=== PATIENT | female | born 1975 | race Hispanic/Latino ===

== ENCOUNTER → 2020-02-28 14:47 | Outpatient (CLI) | payer MEDICARE, SELFPAY ==
--- NOTE | 2020-02-28 14:52 | DI.RAD.S_ITS ---
PROCEDURE: XR KNEE RT 3V INDICATIONS: pain, swelling, unknown if injury, h/o seizures, r/o bony ab TECHNIQUE: 3 views of the knee were acquired. COMPARISON: None. FINDINGS: Bones: No fractures or dislocations. No suspicious bony lesions. No definite joint space narrowing. Moderate joint effusion IMPRESSION: Moderate joint effusion. If the patient's pain or other symptoms persist, consider further evaluation with MRI Dictated by: Melvin Farrell M.D. on 02/28/2020 at 15:54 Approved by: Melvin Farrell M.D. on 02/28/2020 at 15:55
== END ==
LOC: RAD 14:51
PROVIDERS: Referring Provider Physician Assistant; Visit Provider Physician Assistant
DX: M25.561 Pain in right knee (principal); R22.41 Localized swelling, mass and lump, right lower limb; R56.9 Unspecified convulsions
CPT/HCPCS: 73562

== ENCOUNTER 2021-11-11 12:36 | Emergency (ER) | payer MEDICARE, SELFPAY ==
[2021-11-11] VITALS (7 sets, daily range): BP systolic 113–151; BP diastolic 61–67; PULSE 74–88; RESP 15–22; TEMP 36.3; O2SAT 97–100
--- NOTE | 2021-11-11 12:41 | DI.CT.S_ITS ---
PROCEDURE: CT HEAD/BRAIN WO CON INDICATIONS: found unresponsive, with head injury TECHNIQUE: Noncontrast 4.5 mm thick angled axial sections acquired from the foramen magnum to the vertex, with coronal and sagittal reformats. For radiation dose reduction, the following was used: automated exposure control, adjustment of mA and/or kV according to patient size. COMPARISON: None. FINDINGS: Image quality: Excellent. CSF spaces: Basal cisterns are patent. No extra-axial fluid collections. Ventricles are normal in size and shape. Brain: No midline shift. No intracranial masses or hemorrhage. Mosher-white matter interface is normal. Skull and face: Calvarium and visualized facial bones are intact, without suspicious lesions. Sinuses: Visualized sinuses and mastoids are clear. IMPRESSION: No evidence acute intracranial process. Dictated by: Herminio Calvert M.D. on 11/11/2021 at 13:09 Approved by: Herminio Calvert M.D. on 11/11/2021 at 13:09
--- NOTE | 2021-11-11 12:42 | ED.AMS ---
HPI - Altered Mental Status General Chief Complaint: Seizure Stated Complaint: seizure Time Seen by Provider: 11/11/21 12:40 History of Present Illness HPI narrative: 46-year-old female nonsmoker with history of seizures presents by EMS for evaluation of unresponsive episode just prior to arrival. She does have a history of seizures but states she has been taking her medications. She was very confused on arrival of EMS. She was seen by a passerby laying in the road. She is more alert by the time she arrives here. She denies any injury, did not lose control of her bladder and did not bite her tongue. She has had no fever or chills. She denies any pain. Related Data Home Medications Medication Instructions Recorded Confirmed acetaminophen 325 mg tablet 650 mg PO #0 01/15/17 01/27/18 levetiracetam [Keppra] PO 02/28/20 02/28/20 Previous Rx's Medication Instructions Recorded carbamazepine 200 mg tablet 300 mg PO BID #180 cap 03/31/17 levetiracetam 1,000 mg tablet 3,000 mg PO BID #180 tab 03/31/17 (Keppra) amoxicillin 875 mg-potassium 1 tab PO BID #20 tab 01/27/18 clavulanate 125 mg tablet (Augmentin) carbamazepine 100 mg 100 mg PO BID #210 cap 09/07/19 capsule,extended release [id number] levetiracetam 1,000 mg tablet 1,000 mg PO BID #150 tab 09/07/19 Allergies Allergy/AdvReac Type Severity Reaction Status Date / Time No Known Drug Allergies Allergy Verified 02/28/20 14:28 Review of Systems Review of Systems Narrative: GENERAL: See HPI HEENT: Denies sinus pain, ear pain, sore throat, difficulty swallowing, dizziness. RESPIRATORY: Denies dyspnea, cough, wheezing, hemoptysis, sputum. CARDIOVASCULAR: Denies chest pain, palpitations, orthopnea, edema, GASTROINTESTINAL: Denies nausea, vomiting, abdominal pain, diarrhea, constipation, melena. : Denies dysuria, frequency, incontinence, hematuria, urinary retention. MUSCULOSKELETAL: denies weakness, joint pain, or bony pain SKIN: Denies rash, skin lesions, or other NEUROLOGIC: See HPI PSYCHIATRIC: No concerning psychosocial issues. 12 point review of systems is negative except for those stated above Patient History Medical History (Updated 11/11/21 @ 14:44 by Octavio Vu DO) Knee pain Social History Smoking Status: Never smoker Smoking Status: Never smoker Exam Initial Vital Signs Initial Vital Signs: Vital Signs Temperature 97.4 F L 11/11/21 12:35 Pulse Rate 88 11/11/21 12:35 Respiratory Rate 17 11/11/21 12:35 Blood Pressure 137/67 11/11/21 12:35 Pulse Oximetry 99 11/11/21 12:35 GENERAL: [46] year old patient appears stated age. Well-developed patient, in mild distress. GCS 15, confused HEAD: Atraumatic. Normocephalic. EYES: Pupils equal round and reactive. Extraocular motions intact. No scleral icterus. No injection or drainage. ENT: Nose without bleeding, purulent drainage. Throat without erythema, tonsillar hypertrophy or exudate. Airway patent. NECK: Trachea midline. Non tender CARDIOVASCULAR: Regular rate and rhythm without murmurs, gallops, or rubs. RESPIRATORY: Clear to auscultation. Breath sounds equal bilaterally. No wheezes, rales, or rhonchi. GASTROINTESTINAL: Abdomen soft, non-tender, nondistended. EXTREMITIES: No edema or joint tenderness. BACK: Nontender without deformity or crepitance. No flank tenderness. NEURO: Awake, confused. Cranial nerves 2-12 grossly intact SKIN: No rash or erythema of visible areas Course Orders Ordered: Discontinued Medications Sodium Chloride (Normal Saline 0.9%) 1,000 mls @ 1,000 mls/hr IV BOLUS ONE Stop: 11/11/21 13:39 Last Infusion: 11/11/21 14:21 Dose: 0 mls/hr Documented by: Admin: 11/11/21 13:35 Dose: 1,000 mls/hr Documented by: KRISTINA Vital Signs Vital signs: Vital Signs - 8 hr 11/11/21 12:35 11/11/21 12:44 11/11/21 12:52 Temperature 97.4 F L Pulse Rate 88 86 84 Respiratory Rate 17 17 22 Blood Pressure 137/67 118/66 Pulse Oximetry 99 99 97 11/11/21 13:00 11/11/21 13:30 11/11/21 14:00 Temperature Pulse Rate 82 74 75 Respiratory Rate 17 16 15 Blood Pressure 116/67 113/61 125/61 Pulse Oximetry 99 99 100 MDM - Altered Mental Status Lab Data Result diagrams: 11/11/21 13:10 11/11/21 13:50 Labs: Lab Results 11/11/21 11/11/21 11/11/21 Range/Units 13:10 13:10 13:10 WBC 8.5 (4.5-11.0) X10^3/uL RBC 4.20 (4.0-5.2) X10^6/uL Hgb 13.7 (12.0-16.0) g/dL Hct 40.5 (36-46) % MCV 96.3 (80-100) fL MCH 32.5 (26-34) PG MCHC 33.8 (30-36) % RDW 12.2 (11.6-14.8) % Plt Count 223 (150-400) X10^3/uL Neut % (Auto) 57.0 (50-75) % Lymph % (Auto) 31.2 (25-40) % [place] % (Auto) 9.2 (3-14) % Eos % (Auto) 2.3 (2-4) % Baso % (Auto) 0.3 (0-2) % Neut # (Auto) 4900 (9899-1738) /uL Lymph # (Auto) 2700 (2224-5609) /uL [place] # (Auto) 800 (0-900) /uL Eos # (Auto) 200 (0-450) /uL Baso # (Auto) 0 (0-100) /uL Sodium (137-145) mmol/L Potassium (3.4-5.1) mmol/L Chloride (98-107) mmol/L Carbon Dioxide (22-32) mmol/L BUN (7-17) mg/dL Creatinine (0.52-1.04) mg/dL Estimated GFR (>60) mL/min BUN/Creatinine Ratio (6-22) Glucose (70-100) mg/dL Calcium (8.4-10.2) mg/dL Magnesium 1.8 (1.6-2.3) mg/dL Total Bilirubin (0.2-1.3) mg/dL AST (14-36) IU/L ALT (<35) IU/L Alkaline Phosphatase (38-126) U/L Total Protein (6.3-8.2) g/dL Albumin (3.5-5.0) g/dL Globulin (1.7-4.1) g/dL Albumin/Globulin Ratio (1.0-2.8) Prolactin 32.2 H (3.0-18.6) ng/mL Urine Color Urine Appearance Urine pH (4.5-8.0) Ur Specific [place] (1.000-1.035) Urine Protein (Negative) Urine Glucose (UA) (Negative) g/dL Urine Ketones (NEGATIVE) Urine Occult Blood (Negative) Urine Nitrate (Negative) Urine Bilirubin (NEGATIVE) Urine Urobilinogen (0.2) E.U./dL Ur Leukocyte Esterase (NEGATIVE) Urine RBC (0-5/HPF) Urine WBC (0-5/HPF) Ur Squamous Epith Cells (0-5/HPF) Urine Bacteria (None) Ur Culture Indicated? U Opiates 300ng/mL cut (Negative) Ur Oxycodone Screen (Negative) Urine Methadone Screen (Negative) Ur Barbiturates Screen (Negative) Carbamazepine 8.7 (4.0-12.0) ug/mL U Tricyclic Antidepress (Negative) Ur Phencyclidine Scrn (Negative) Ur Amphetamines Screen (Negative) U Methamphetamines Scrn (Negative) Ur MDMA Scrn (Ecstasy) (Negative) U Benzodiazepines Scrn (Negative) Urine Cocaine Screen (Negative) U Marijuana (THC) Screen (Negative) 11/11/21 11/11/21 11/11/21 Range/Units 13:50 14:30 14:30 WBC (4.5-11.0) X10^3/uL RBC (4.0-5.2) X10^6/uL Hgb (12.0-16.0) g/dL Hct (36-46) % MCV (80-100) fL MCH (26-34) PG MCHC (30-36) % RDW (11.6-14.8) % Plt Count (150-400) X10^3/uL Neut % (Auto) (50-75) % Lymph % (Auto) (25-40) % [place] % (Auto) (3-14) % Eos % (Auto) (2-4) % Baso % (Auto) (0-2) % Neut # (Auto) (7770-1454) /uL Lymph # (Auto) (1993-7264) /uL [place] # (Auto) (0-900) /uL Eos # (Auto) (0-450) /uL Baso # (Auto) (0-100) /uL Sodium 139 (137-145) mmol/L Potassium 4.1 (3.4-5.1) mmol/L Chloride 102 (98-107) mmol/L Carbon Dioxide 29 (22-32) mmol/L BUN 15 (7-17) mg/dL Creatinine 0.61 (0.52-1.04) mg/dL Estimated GFR > 60.0 (>60) mL/min BUN/Creatinine Ratio 24.6 H (6-22) Glucose 93 (70-100) mg/dL Calcium 8.8 (8.4-10.2) mg/dL Magnesium (1.6-2.3) mg/dL Total Bilirubin 0.2 (0.2-1.3) mg/dL AST 32 (14-36) IU/L ALT 26 (<35) IU/L Alkaline Phosphatase 91 (38-126) U/L Total Protein 8.3 H (6.3-8.2) g/dL Albumin 4.5 (3.5-5.0) g/dL Globulin 3.8 (1.7-4.1) g/dL Albumin/Globulin Ratio 1.2 (1.0-2.8) Prolactin (3.0-18.6) ng/mL Urine Color Yellow Urine Appearance Clear Urine pH 5.5 (4.5-8.0) Ur Specific [place] 1.010 (1.000-1.035) Urine Protein Negative (Negative) Urine Glucose (UA) Negative (Negative) g/dL Urine Ketones Negative (NEGATIVE) Urine Occult Blood Negative (Negative) Urine Nitrate Negative (Negative) Urine Bilirubin Negative (NEGATIVE) Urine Urobilinogen 0.2 (0.2) E.U./dL Ur Leukocyte Esterase Trace H (NEGATIVE) Urine RBC None seen (0-5/HPF) Urine WBC 0-1/hpf (0-5/HPF) Ur Squamous Epith Cells 5-10 /hpf H (0-5/HPF) Urine Bacteria None seen (None) Ur Culture Indicated? Cult not indicated U Opiates 300ng/mL cut Negative (Negative) Ur Oxycodone Screen Negative (Negative) Urine Methadone Screen Negative (Negative) Ur Barbiturates Screen Negative (Negative) Carbamazepine (4.0-12.0) ug/mL U Tricyclic Antidepress Negative (Negative) Ur Phencyclidine Scrn Negative (Negative) Ur Amphetamines Screen Negative (Negative) U Methamphetamines Scrn Negative (Negative) Ur MDMA Scrn (Ecstasy) Negative (Negative) U Benzodiazepines Scrn Negative (Negative) Urine Cocaine Screen Negative (Negative) U Marijuana (THC) Screen Negative (Negative) MDM Narrative Medical decision making narrative: Discussed with Dr. Power (Neuro at [facility]). Current dosing Keppra 2500mg PO BID, Carbamazepine 400mg am and 300mg pm. She reports the patient has been on various medications over the past many years and this is the most stable she has been, the dosing regimen is set by Neurology at the [facility]. She recommends against any changes currently. Return precautions to be given, request she follow up at her office, call tomorrow for appointment. Discharge Plan Departure Patient Disposition: Home Clinical Impression: Seizure Instructions: DI for Seizure Disorder -- Adult Activity Restrictions/Additional Instructions: *You have been diagnosed with [breakthrough seizure. Your labs are very reassuring today as is your physical exam and CT scan. I discussed your case with your neurologist and she would recommend against any changes in your medications, she does however want you to call the office to arrange for an appointment *What to do: *Please continue to take your regular medications as directed. [] New medication prescriptions sent to your pharmacy: [ ] [ ] New medication written as a paper prescription [ x] No new medications given *Return to Emergency Department if you should have any new, worsening or concerning symptoms, such as [fever greater than 101 F, shaking chills, worsening pain, persistent vomiting or other bothersome symptoms] Prescriptions: No Action amoxicillin-pot clavulanate [Augmentin] 875-125 mg tablet 1 tab PO BID Qty: 20 0RF levetiracetam PO 0RF acetaminophen 325 MG tablet 650 mg PO Qty: 0 0RF carbamazepine 200 MG tablet 300 mg PO BID Qty: 180 11RF levetiracetam [Keppra] 1,000 MG tablet 3,000 mg PO BID Qty: 180 5RF levetiracetam 1,000 mg tablet 1,000 mg PO BID Qty: 150 1RF Rx Instructions: take 2.5 tablets by mouth twice daily carbamazepine 100 mg capsule, ER multiphase 12 hr 100 mg PO BID Qty: 210 1RF Rx Instructions: take 3 PO every morning and 4 PO every evening Referrals: Mary Power MD [Non-Staff] -
[2021-11-11 13:30] LABS: Add Manual Diff / Slide Review NO; Basophils Absolute Auto 0 /uL (0-100); Basophils Percent Auto 0.3 % (0-2); Eosinophils Absolute Auto 200 /uL (0-450); Eosinophils Percent Auto 2.3 % (2-4); Hematocrit 40.5 % (36-46); Hemoglobin 13.7 g/dL (12.0-16.0); Lymphocytes Absolute Auto 2700 /uL (1100-4500); Lymphocytes Percent Auto 31.2 % (25-40); Mean Corpuscular HGB Conc 33.8 % (30-36); Mean Corpuscular Hemoglobin 32.5 PG (26-34); Mean Corpuscular Volume 96.3 fL (80-100); Monocytes Absolute Auto 800 /uL (0-900); Monocytes Percent Auto 9.2 % (3-14); Neutrophils Absolute Auto 4900 /uL (1500-7000); Platelet Count 223 X10^3/uL (150-400); Red Cell Distribution Width 12.2 % (11.6-14.8); White Blood Cell Count 8.5 X10^3/uL (4.5-11.0)
[2021-11-11] MEDS: SODIUM CHLORIDE 0.9% 1,000 ML 1000 ML IV (13:35)
[2021-11-11 13:42] LABS: Magnesium 1.8 mg/dL (1.6-2.3)
[2021-11-11 13:59] LABS: Prolactin 32.2 ng/mL (3.0-18.6)
[2021-11-11 13:59] LABS: Alanine Aminotransferase 26 IU/L (<35); Albumin 4.5 g/dL (3.5-5.0); Albumin Globulin Ratio 1.2 (1.0-2.8); Alkaline Phosphatase 91 U/L (38-126); Aspartate Aminotransferase 32 IU/L (14-36); BUN Creatinine Ratio 24.6 (6-22); Bilirubin Total 0.2 mg/dL (0.2-1.3); Blood Urea Nitrogen 15 mg/dL (7-17); Calcium 8.8 mg/dL (8.4-10.2); Carbon Dioxide 29 mmol/L (22-32); Chloride 102 mmol/L (98-107); Estimated Glomerular Filt Rate > 60.0 mL/min (>60); Globulin 3.8 g/dL (1.7-4.1); Glucose 93 mg/dL (70-100); HEMOLYSIS < 15 (0-50); Potassium 4.1 mmol/L (3.4-5.1); Sodium 139 mmol/L (137-145); Total Protein 8.3 g/dL (6.3-8.2)
[2021-11-11 14:35] LABS: UR Morphine/Opiate cutoff 300 Negative (Negative); Ur Creatinine Normal (Normal); Ur Specific Gravity Normal (Normal); Urine Amphetamines Negative (Negative); Urine Cocaine Negative (Negative); Urine Methamphetamines Negative (Negative); Urine Phencyclidine Negative (Negative); Urine Tetrahydrocannabinol Negative (Negative); Urine pH Normal (Normal)
[2021-11-11 14:36] LABS: Appearance Urine UA CLEAR; Bilirubin Urine UA NEGATIVE (NEGATIVE); Color Urine UA YELLOW; Glucose Urine UA NEGATIVE (Negative); Ketones Urine UA NEGATIVE (NEGATIVE); Leukocyte Esterase Urine UA TRACE (NEGATIVE); Nitrite Urine UA NEGATIVE (Negative); Occult Blood Urine UA NEGATIVE (Negative); Protein Urine UA NEGATIVE (Negative); Urine Barbiturates Negative (Negative); Urine Benzodiazepines Negative (Negative); Urine MDMA Negative (Negative); Urine Methadone Negative (Negative); Urine Oxycodone Negative (Negative); Urine Tricyclic Antidepressant Negative (Negative); Urobilinogen Urine UA 0.2 E.U./dL (0.2)
[2021-11-11 14:37] LABS: pH Urine UA 5.5 (4.5-8.0)
[2021-11-11 14:39] LABS: Bacteria Urine None Seen; Culture Indicated Urine Cult Not Indicated; RBC Urine None Seen (0-5/HPF); Squamous Epithelial Cell Urine 5-10 /HPF (0-5/HPF); WBC Urine 0-1/HPF (0-5/HPF)
--- NOTE | 2021-11-11 15:43 | CM.SWNOTE ---
APPLICATION CONSULTANT/DCP Note APPLICATION CONSULTANT receives consult to meet with patient. Patient is 46 y/o female who presents to ED via EMS after being found in street after seizure. Patient endorses that she does not remember what happened beforehand and just remembers being in the ambulance. Patient presents as A/Ox4. Patient cannot remember the name of her PCP. Patient endorses she resides at home with her and two kids, patient denies concerns at home. Patient states that she felt sick a week ago but is feeling very good now. Patient endorses that she does not drive and her has limited driving opportunities. Patient endorses that she was not able to take her medications today. Patient endorses that she just now remembers that she needs to call her PCP to get new rx. Patient endorses difficulty in getting medication due to transportation issues. APPLICATION CONSULTANT provides patient with information on how to access a [employer] bus pass and it could be free of cost if filled out by PCP. Plan: patient to d/c to home when medically clear with f/u with PCP. ZI Nassar
[2021-11-12 03:57] LABS: Carbamazepine Tegretol Level 8.7 ug/mL (4.0-12.0)
== END 2021-11-11 15:12 | disposition home or self-care (01) ==
PROVIDERS: Emergency Provider Emergency Medicine
DX: G40.909 Epilepsy, unspecified, not intractable, without status epilepticus (principal)
CPT/HCPCS: 36415; 70450; 80053; 80156; 80305; 81003; 81015; 83735; 84146; 85025; 93005; 93010; 96360; 99284

== ENCOUNTER 2025-01-27 12:41 | Emergency (ER) | payer MEDICARE, SELFPAY ==
--- NOTE | 2025-01-27 12:36 | DI.CT.S_ITS ---
PROCEDURE: CT HEAD/BRAIN WO CON INDICATIONS: fall, hit head, seizure TECHNIQUE: Noncontrast 4.5 mm thick angled axial sections acquired from the foramen magnum to the vertex, with coronal and sagittal reformats. For radiation dose reduction, the following was used: automated exposure control, adjustment of mA and/or kV according to patient size. COMPARISON: [facility], CT, CT HEAD/BRAIN WO CON, 11/11/2021, 12:51. FINDINGS: Image quality: Diagnostic. CSF spaces: Basal cisterns are patent. No extra-axial fluid collections. Ventricles are normal in size and shape. Brain: No midline shift. No intracranial mass effect or hemorrhage. Mosher- white matter interface is normal. Skull and face: Right posterior scalp hematoma. Calvarium and visualized facial bones are intact, without suspicious lesions. Sinuses: Visualized sinuses and mastoids are clear. IMPRESSION: No acute intracranial pathology. Dictated by: Javi Castillo M.D. on 01/27/2025 at 12:56 Approved by: Javi Castillo M.D. on 01/27/2025 at 12:58
[2025-01-27 12:41] VITALS: BP 177/79; PULSE 78; RESP 18; TEMP 36.8; O2SAT 98; BMI 31.7
[2025-01-27 12:50] VITALS: PULSE 65; O2SAT 98
[2025-01-27 12:51] VITALS: BP 137/65; PULSE 63; O2SAT 97
--- NOTE | 2025-01-27 12:53 | ED.SEIZURE ---
HPI - Seizure <Claritza Parker PA-C - Last Filed: 01/27/25 19:29> General Chief Complaint: Seizure Stated Complaint: Seizure Time Seen by Provider: 01/27/25 12:49 History of Present Illness HPI Narrative: This is a 49-year-old female with a history of seizures on seizure medication who per family had a seizure today lasting no more than 4 minutes. Patient states she remembers going into town of the [place] and then stopping at a garage sale on the way back to their [place] and [place] in [place]. Has been and patient's children state they did not actually see her start to fall but has been said that he turned and she was actively falling to the ground and he was unable to catch her as he was more than 10 ft away when she fell. She hit the back of her head on cement when she fell. He says normally when she has a seizure she initially has her head turned left and then has 1-2 minutes of poor responsiveness and usually comes out of it within about for 5 minutes. He states he normally lowers her to the ground to avoid injury but was unable to do so this time. He believes that she had a seizure. Patient does not remember falling. She endorses has pain in the top and back of her head where she hit her head and also endorses left arm pain and discomfort in the biceps area and radiating down into her left arm. She acknowledges she has chronic left arm pain due to disc problems. She is not having any new back pain or discomfort. Patient and family states she normally takes Tylenol for her chronic arm pain. And she says it is often worse after she has a seizure. She denies any chest pain, recent illness dizziness, vision change, numbness or tingling of extremities or other symptoms. Related Data Home Medications ?Medication ?Instructions ?Recorded ?Confirmed acetaminophen 325 mg tablet 650 mg PO ##0 01/15/17 01/27/18 levetiracetam [Keppra] PO 02/28/20 02/28/20 Previous Rx's ?Medication ?Instructions ?Recorded carbamazepine 200 mg tablet 300 mg (1.5 x 200 mg) PO BID #180 03/31/17 caps levetiracetam 1,000 mg tablet 3,000 mg (3 x 1,000 mg) PO BID 03/31/17 (Keppra) #180 tabs amoxicillin 875 mg-potassium 1 tab PO BID #20 tabs 01/27/18 clavulanate 125 mg tablet (Augmentin) carbamazepine 100 mg 100 mg PO BID #210 caps 09/07/19 capsule,extended release [id number] levetiracetam 1,000 mg tablet 1,000 mg PO BID #150 tabs 09/07/19 Allergies Allergy/AdvReac Type Severity Reaction Status Date / Time No Known Drug Allergies Allergy Verified 01/27/25 12:42 Review of Systems <Claritza Parker PA-C - Last Filed: 01/27/25 19:29> Review of Systems Narrative: See HPI Patient History <Claritza Parker PA-C - Last Filed: 01/27/25 19:29> Medical History Knee pain Social History Smoking Status: Never smoker alcohol intake frequency: 0-2 drinks per day Exam <Claritza Parker PA-C - Last Filed: 01/27/25 19:29> Narrative Exam Narrative: GENERAL: [49] year old patient appears stated age. Well-developed patient, in mild distress. HEAD: There is a scalp hematoma on the posterior crown with abrasion and very mild persistent oozing blood when direct pressure is not applied. Otherwise Atraumatic. Normocephalic. EYES: Pupils equal round and reactive. Extraocular motions intact. No scleral icterus. No injection or drainage. ENT: Nose without bleeding, purulent drainage. Throat without erythema, tonsillar hypertrophy or exudate. Airway patent. NECK: Trachea midline. Non tender CARDIOVASCULAR: Regular rate and rhythm without murmurs, gallops, or rubs. RESPIRATORY: Clear to auscultation. Breath sounds equal bilaterally. No wheezes, rales, or rhonchi. GASTROINTESTINAL: Abdomen soft, non-tender, nondistended. EXTREMITIES: There is muscle tightness and tenderness over the biceps of the left arm. Also mild shoulder tenderness of the posterior deltoid and scapula. No other edema or joint tenderness. BACK: No midline spinous process tenderness step-off or deformity. Nontender without deformity or crepitance. No flank tenderness. NEURO: AOx3. Cranial nerves 2-12 intact. Negative arm drift. No seizure activity. Equal roll reclaimer. SKIN: No rash or erythema of visible areas Initial Vital Signs Initial Vital Signs: Vital Signs Temperature 98.3 F 01/27/25 12:41 Pulse Rate 78 01/27/25 12:41 Respiratory Rate 18 01/27/25 12:41 Blood Pressure 177/79 H 01/27/25 12:41 Pulse Oximetry 98 01/27/25 12:41 Oxygen Delivery Method Room Air 01/27/25 12:41 <Annabella Arreola MD - Last Filed: 01/28/25 18:33> Initial Vital Signs Initial Vital Signs: Vital Signs Temperature 98.3 F 01/27/25 12:41 Pulse Rate 78 01/27/25 12:41 Respiratory Rate 18 01/27/25 12:41 Blood Pressure 177/79 H 01/27/25 12:41 Pulse Oximetry 98 01/27/25 12:41 Oxygen Delivery Method Room Air 01/27/25 12:41 Course <Claritza Parker PA-C - Last Filed: 01/27/25 19:29> Orders Ordered: Discontinued Medications Acetaminophen (Acetaminophen 325 Mg Tablet) 975 mg PO NOW ONE Stop: 01/27/25 13:22 Last Admin: 01/27/25 13:25 Dose: 975 mg Documented By: LOR Lidocaine/Prilocaine (Lidocaine/Prilocaine 5 Gm) 5 gm TOP NOW ONE Stop: 01/27/25 15:00 Last Admin: 01/27/25 15:31 Dose: 5 gm Documented By: LOR Vital Signs Vital signs: Vital Signs - 8 hr 01/27/25 12:41 01/27/25 12:50 01/27/25 12:51 Temperature 98.3 F Pulse Rate 78 65 Respiratory Rate 18 Blood Pressure 177/79 H 137/65 Pulse Oximetry 98 98 Oxygen Delivery Method Room Air 01/27/25 12:51 Temperature Pulse Rate 63 Respiratory Rate Blood Pressure Pulse Oximetry 97 Oxygen Delivery Method <Annabella Arreola MD - Last Filed: 01/28/25 18:33> Orders Ordered: Discontinued Medications Acetaminophen (Acetaminophen 325 Mg Tablet) 975 mg PO NOW ONE Stop: 01/27/25 13:22 Last Admin: 01/27/25 13:25 Dose: 975 mg Documented By: LOR Lidocaine/Prilocaine (Lidocaine/Prilocaine 5 Gm) 5 gm TOP NOW ONE Stop: 01/27/25 15:00 Last Admin: 01/27/25 15:31 Dose: 5 gm Documented By: LOR Vital Signs Vital signs: Vital Signs - 8 hr 01/27/25 12:41 01/27/25 12:50 01/27/25 12:51 Temperature 98.3 F Pulse Rate 78 65 Respiratory Rate 18 Blood Pressure 177/79 H 137/65 Pulse Oximetry 98 98 Oxygen Delivery Method Room Air 01/27/25 12:51 Temperature Pulse Rate 63 Respiratory Rate Blood Pressure Pulse Oximetry 97 Oxygen Delivery Method MDM - Seizure <Claritza Parker PA-C - Last Filed: 01/27/25 19:29> Differential Diagnosis Differential diagnosis: Likely other (seizure/head injury) Medical Records Attestation: I reviewed the patient's medical records. Lab Data Attestation: I reviewed the patient's lab results. 01/27/25 12:40 01/27/25 12:40 Labs: Lab Results 01/27/25 Range/Units 12:40 WBC 11.5 H (4.5-11.0) X10^3/uL RBC 4.06 (4.0-5.2) X10^6/uL Hgb 13.6 (12.0-16.0) g/dL Hct 39.6 (36-46) % MCV 97.7 (80-100) fL MCH 33.4 (26-34) PG MCHC 34.2 (30-36) % RDW 12.6 (11.6-14.8) % Plt Count 251 (150-400) X10^3/uL Neut % (Auto) 62.5 (50-75) % Lymph % (Auto) 27.5 (25-40) % [place] % (Auto) 7.2 (3-14) % Eos % (Auto) 2.4 (2-4) % Baso % (Auto) 0.4 (0-2) % Neut # (Auto) 7200 H (0989-7477) /uL Lymph # (Auto) 3200 (2426-7538) /uL [place] # (Auto) 800 (0-900) /uL Eos # (Auto) 300 (0-450) /uL Baso # (Auto) 0 (0-100) /uL Sodium 138 (137-145) mmol/L Potassium 4.1 (3.4-5.1) mmol/L Chloride 105 (98-107) mmol/L Carbon Dioxide 24 (22-32) mmol/L BUN 14 (7-17) mg/dL Creatinine 0.66 (0.52-1.04) mg/dL Estimated GFR > 60 (>60) mL/min BUN/Creatinine Ratio 21.2 (6-22) Glucose 104 H (70-99) mg/dL Calcium 9.1 (8.4-10.2) mg/dL Magnesium 1.8 (1.6-2.3) mg/dL Total Bilirubin 0.4 (0.2-1.3) mg/dL AST 44 H (14-36) IU/L ALT 35 H (<35) IU/L Alkaline Phosphatase 126 (38-126) U/L Total Protein 8.6 H (6.3-8.2) g/dL Albumin 4.7 (3.5-5.0) g/dL Globulin 3.9 (1.7-4.1) g/dL Albumin/Globulin Ratio 1.2 (1.0-2.8) Imaging Data CT scan - head: My Impression: Agree with radiology interpretation Radiologist's Impression: [place] [address] CT Scan Report Signed Patient: Carmel Santiago MR#: [id number] : 1975 Acct:[id number] Age/Sex: 49 / F Date of Service: 01/27/25 Loc: ED Accession Number: [id number] Procedure: CT head/brain wo con Ordering Provider: Annabella Arreola MD PROCEDURE: CT HEAD/BRAIN WO CON INDICATIONS: fall, hit head, seizure TECHNIQUE: Noncontrast 4.5 mm thick angled axial sections acquired from the foramen magnum to the vertex, with coronal and sagittal reformats. For radiation dose reduction, the following was used: automated exposure control, adjustment of mA and/or kV according to patient size. COMPARISON: [facility], CT, CT HEAD/BRAIN WO CON, 11/11/2021, 12:51. FINDINGS: Image quality: Diagnostic. CSF spaces: Basal cisterns are patent. No extra-axial fluid collections. Ventricles are normal in size and shape. Brain: No midline shift. No intracranial mass effect or hemorrhage. Mosher-white matter interface is normal. Skull and face: Right posterior scalp hematoma. Calvarium and visualized facial bones are intact, without suspicious lesions. Sinuses: Visualized sinuses and mastoids are clear. IMPRESSION: No acute intracranial pathology. Dictated by: Javi Castillo M.D. on 01/27/2025 at 12:56 Approved by: Javi Castillo M.D. on 01/27/2025 at 12:58 Extremity x-ray #1: My Impression: Agree with Radiology interpretation Radiologist's Impression: [address] [address] XRay Report Signed Patient: Carmel Santiago MR#: [id number] : 1975 Acct:[id number] Age/Sex: 49 / F Date of Service: 01/27/25 Loc: ED Accession Number: [id number] Procedure: XR shoulder LT 2+ views Ordering Provider: Claritza Parker PA-C PROCEDURE: XR SHOULDER LT MIN 2V INDICATIONS: seizure-fall, left shoulder pain TECHNIQUE: 2 views of the shoulder were acquired. COMPARISON: None. FINDINGS: Bones: Suboptimal positioning. No gross fractures or dislocations. No fractures or dislocations. No suspicious bony lesions. Visualized ribs appear intact. Soft tissues: No suspicious soft tissue calcifications. IMPRESSION: Suboptimal positioning. No gross fractures or dislocations. Dictated by: Herminio Calvert M.D. on 01/27/2025 at 14:47 Approved by: Herminio Calvert M.D. on 01/27/2025 at 14:47 [facility] Narrative Medical decision making narrative: This is a 49-year-old woman with known seizure disorder who takes carbamazepine and Keppra daily with occasional breakthrough seizures who presented today brought in by EMS with family with a head injury in the setting of likely seizure with fall and hitting the back of her head. Patient was postictal upon arrival. Which resolved over 30 minutes or so. Her neuro exam was unremarkable though she does have some tenderness and difficulty with her left arm with flexion and extension which is baseline according to patient and her . Some left shoulder pain and tenderness on exam and left shoulder imaging returned negative. Range of motion was intact as was strength. Noncontrast head CT returned negative. Patient had no recurrent seizure activity while in the emergency department. Scalp hematoma was treated with ice, topical numbing medicine, washed out and a single staple applied for very minor persistent oozing which controlled the bleeding. Patient and her were advised regarding monitoring for recurrent seizure, new symptoms suggesting internal head bleed/injury including vomiting, severe headache, vision change, balance or coordination issues. They understand they will seek re-evaluation or call 911 if any new or concerning symptoms develop. Patient was advised to continue her regular medications as prescribed and have michi removed in 7-10 days. Follow up closely with PCP for recheck. Return precautions provided, follow-up plan discussed, all questions answered. <Annabella Arreola MD - Last Filed: 01/28/25 18:33> Lab Data Labs: Lab Results 01/27/25 Range/Units 12:40 WBC 11.5 H (4.5-11.0) X10^3/uL RBC 4.06 (4.0-5.2) X10^6/uL Hgb 13.6 (12.0-16.0) g/dL Hct 39.6 (36-46) % MCV 97.7 (80-100) fL MCH 33.4 (26-34) PG MCHC 34.2 (30-36) % RDW 12.6 (11.6-14.8) % Plt Count 251 (150-400) X10^3/uL Neut % (Auto) 62.5 (50-75) % Lymph % (Auto) 27.5 (25-40) % [place] % (Auto) 7.2 (3-14) % Eos % (Auto) 2.4 (2-4) % Baso % (Auto) 0.4 (0-2) % Neut # (Auto) 7200 H (1849-0230) /uL Lymph # (Auto) 3200 (3388-7470) /uL [place] # (Auto) 800 (0-900) /uL Eos # (Auto) 300 (0-450) /uL Baso # (Auto) 0 (0-100) /uL Sodium 138 (137-145) mmol/L Potassium 4.1 (3.4-5.1) mmol/L Chloride 105 (98-107) mmol/L Carbon Dioxide 24 (22-32) mmol/L BUN 14 (7-17) mg/dL Creatinine 0.66 (0.52-1.04) mg/dL Estimated GFR > 60 (>60) mL/min BUN/Creatinine Ratio 21.2 (6-22) Glucose 104 H (70-99) mg/dL Calcium 9.1 (8.4-10.2) mg/dL Magnesium 1.8 (1.6-2.3) mg/dL Total Bilirubin 0.4 (0.2-1.3) mg/dL AST 44 H (14-36) IU/L ALT 35 H (<35) IU/L Alkaline Phosphatase 126 (38-126) U/L Total Protein 8.6 H (6.3-8.2) g/dL Albumin 4.7 (3.5-5.0) g/dL Globulin 3.9 (1.7-4.1) g/dL Albumin/Globulin Ratio 1.2 (1.0-2.8) Discharge Plan Departure Patient Disposition: Home Clinical Impression: Seizure CHI (closed head injury) Qualifiers: Encounter type: initial encounter Qualified Code(s): S09.90XA - Unspecified injury of head, initial encounter Activity Restrictions/Additional Instructions: *You have been diagnosed with [seizure, closed head injury] *What to do: *Please continue to take your regular medications as directed. [ ] New medication prescriptions sent to your pharmacy: [ ] [ ] New medication written as a paper prescription [ ] No new medications given *Please follow up with your primary care provider in 2-3 days, call for an appointment. Let them know you were seen in the Emergency Department and that we ask that you be seen in follow up. We will electronically transmit a record of today's note if your PCP is in our system. You came in today after having seizure and falling backwards and hitting her head on the cement. We did a CT scan of your head that shows no bleeding in her brain. However it is important that if you have new symptoms such as persistent vomiting or severe headache or vision changes balance or coordination she was that are new that you make sure that you seek re-evaluation. As you did hit your head hard today. You have a bruise on the top and back of her head where it hit and we did place 1 staple you will need to have this removed in approximately 7-10 days. Please keep taking your regular seizure medications and other medications as prescribed. Monitor for any new or worsening symptoms. I strongly recommend that you follow up with your PCP or a post ER visit. We did do an x-ray of your left shoulder today as your baseline shoulder pain seemed worse than normal after your fall and you are having some tenderness. However this looked normal. If you have any new or worsening symptoms please make sure you seek re-evaluation or call 911. I hope that you feel better soon. *If you do not have a primary care provider please contact the [facility] Resource line at [phone]. They will ask some questions about your medical history and help get you set up with a doctor in the community. *Return to Emergency Department if you should have any new, worsening or concerning symptoms, such as [fever greater than 101 F, shaking chills, worsening pain, persistent vomiting or other bothersome symptoms] Prescriptions: No Action amoxicillin-pot clavulanate [Augmentin] 875-125 mg tablet 1 tab PO BID Qty: 20 0RF levetiracetam [Keppra] PO acetaminophen 325 MG tablet 650 mg PO Qty: 0 carbamazepine 200 MG tablet 300 mg PO BID Qty: 180 11RF levetiracetam [Keppra] 1,000 MG tablet 3,000 mg PO BID Qty: 180 5RF levetiracetam 1,000 mg tablet 1,000 mg PO BID Qty: 150 1RF Rx Instructions: take 2.5 tablets by mouth twice daily carbamazepine 100 mg capsule, ER multiphase 12 hr 100 mg PO BID Qty: 210 1RF Rx Instructions: take 3 PO every morning and 4 PO every evening Stand Alone Forms: Patient Portal/API ED Sign-out <Annabella Arreola MD - Last Filed: 01/28/25 18:33> Cosign ED Attending Cosignature Attestation: I was immediately available in the department for consultation throughout this patient's visit. Annabella Arreola MD
[2025-01-27 12:59] LABS: Alanine Aminotransferase 35 IU/L (<35); Albumin 4.7 g/dL (3.5-5.0); Albumin Globulin Ratio 1.2 (1.0-2.8); Alkaline Phosphatase 126 U/L (38-126); Aspartate Aminotransferase 44 IU/L (14-36); BUN Creatinine Ratio 21.2 (6-22); Bilirubin Total 0.4 mg/dL (0.2-1.3); Blood Urea Nitrogen 14 mg/dL (7-17); Calcium 9.1 mg/dL (8.4-10.2); Carbon Dioxide 24 mmol/L (22-32); Chloride 105 mmol/L (98-107); Estimated Glomerular Filt Rate > 60 mL/min (>60); Globulin 3.9 g/dL (1.7-4.1); Glucose 104 mg/dL (70-99); HEMOLYSIS < 15 (0-50); Magnesium 1.8 mg/dL (1.6-2.3); Potassium 4.1 mmol/L (3.4-5.1); Sodium 138 mmol/L (137-145); Total Protein 8.6 g/dL (6.3-8.2)
[2025-01-27 13:03] LABS: Add Manual Diff / Slide Review NO; Basophils Absolute Auto 0 /uL (0-100); Basophils Percent Auto 0.4 % (0-2); Eosinophils Absolute Auto 300 /uL (0-450); Eosinophils Percent Auto 2.4 % (2-4); Hematocrit 39.6 % (36-46); Hemoglobin 13.6 g/dL (12.0-16.0); Lymphocytes Absolute Auto 3200 /uL (1100-4500); Lymphocytes Percent Auto 27.5 % (25-40); Mean Corpuscular HGB Conc 34.2 % (30-36); Mean Corpuscular Hemoglobin 33.4 PG (26-34); Mean Corpuscular Volume 97.7 fL (80-100); Monocytes Absolute Auto 800 /uL (0-900); Monocytes Percent Auto 7.2 % (3-14); Neutrophils Absolute Auto 7200 /uL (1500-7000); Neutrophils Percent Auto 62.5 % (50-75); Platelet Count 251 X10^3/uL (150-400); Red Blood Cell Count 4.06 X10^6/uL (4.0-5.2); Red Cell Distribution Width 12.6 % (11.6-14.8); White Blood Cell Count 11.5 X10^3/uL (4.5-11.0)
[2025-01-27] MEDS: ACETAMINOPHEN 325 MG TABLET 975 MG PO (13:25)
--- NOTE | 2025-01-27 13:55 | DI.RAD.S_ITS ---
PROCEDURE: XR SHOULDER LT MIN 2V INDICATIONS: seizure-fall, left shoulder pain TECHNIQUE: 2 views of the shoulder were acquired. COMPARISON: None. FINDINGS: Bones: Suboptimal positioning. No gross fractures or dislocations. No fractures or dislocations. No suspicious bony lesions. Visualized ribs appear intact. Soft tissues: No suspicious soft tissue calcifications. IMPRESSION: Suboptimal positioning. No gross fractures or dislocations. Dictated by: Herminio Calvert M.D. on 01/27/2025 at 14:47 Approved by: Herminio Calvert M.D. on 01/27/2025 at 14:47
[2025-01-27] MEDS: LIDOCAINE/PRILOCAINE 5 GM TOP (15:31)
== END 2025-01-27 16:22 | disposition home or self-care (01) ==
PROVIDERS: Emergency Medicine; Emergency Provider Student in an Organized Health Care Education/Training Program
DX: S00.01XA Abrasion of scalp, initial encounter (principal); G40.909 Epilepsy, unspecified, not intractable, without status epilepticus; M79.602 Pain in left arm; W18.30XA Fall on same level, unspecified, initial encounter
CPT/HCPCS: 70450; 73030; 80053; 83735; 85025; 99283; 99284